=== PATIENT | male | born 1945 | race Caucasian/White ===

== ENCOUNTER 2020-10-06 18:29 | Observation (INO) ==
[2020-10-06] MEDS ORDERED: GLUCAGON 1 MG VIAL IM PRN (21:06)
[2020-10-06] MEDS ORDERED: ONDANSETRON 4 MG/2 ML VIAL IV PRN (21:06)
[2020-10-06] MEDS ORDERED: DEXTROSE 50% 25 GM/50 ML VIAL IV PRN (21:06)
[2020-10-06] MEDS ORDERED: POTASSIUM CHLORIDE 20 MEQ TABLET PO PRN (22:10)
[2020-10-06] MEDS ORDERED: POTASSIUM CHLORIDE 20 MEQ TABLET PO ONE (22:10)
[2020-10-06 22:11] LABS: Basophils % 0.2 % (0.0-0.8); Eosinophils % 0.1 % (0.00-10.9); Hematocrit 36.1 VOL% (42.0-52.0); Hemoglobin 12.2 GM/DL (14.0-18.0); Immature Granulocytes % 0.2 %; Immature Granulocytes Absolute 0.02 #; Lymphocytes # 1.2 10*3/uL (1.4-4.0); Lymphocytes % 13.7 % (21.2-54.2); Mean Corpuscular HGB Conc 33.8 GM/DL (32-36); Mean Corpuscular Volume 92.1 FL (87-102); Mean Platelet Volume 10.2 FL (9.6-12.0); Monocytes % 4.6 % (1.7-12.7); Neutrophils % 81.2 % (38.7-73.9); Platelet Count 177 T/CUMM (130-400); Red Blood Count 3.92 MC/CUMM (3.8-5.5); Red Cell Distribution Width 13.2 % (9.3-17.3); White Blood Count 8.5 T/CUMM (4-12)
[2020-10-07 05:08] LABS: Basophils % 0.6 % (0.0-0.8); Eosinophils % 0.6 % (0.00-10.9); Hematocrit 36.4 VOL% (42.0-52.0); Hemoglobin 11.9 GM/DL (14.0-18.0); Immature Granulocytes % 0.3 %; Immature Granulocytes Absolute 0.02 #; Lymphocytes # 2.3 10*3/uL (1.4-4.0); Lymphocytes % 31.5 % (21.2-54.2); Mean Corpuscular HGB Conc 32.7 GM/DL (32-36); Mean Corpuscular Volume 92.9 FL (87-102); Mean Platelet Volume 10.5 FL (9.6-12.0); Monocytes % 10.4 % (1.7-12.7); Neutrophils % 56.6 % (38.7-73.9); Platelet Count 167 T/CUMM (130-400); Red Blood Count 3.92 MC/CUMM (3.8-5.5); Red Cell Distribution Width 13.2 % (9.3-17.3); White Blood Count 7.2 T/CUMM (4-12)
[2020-10-07 05:52] LABS: Albumin 3.3 G/DL (3.4-5.0); Bilirubin,Total 0.7 MG/DL (0.2-1.0); Calcium 9.2 MG/DL (8.5-10.1); Osmolality,Calculated 283.7 MOS/KG (273-304); Potassium 4.1 MMOL/L (3.5-5.1); Total Protein 6.8 G/DL (6.4-8.2)
[2020-10-07] MEDS ORDERED: MAGNESIUM SULF RIDER 2 GM/50 ML PREMIX IV ONE (08:12)
[2020-10-07] MEDS: INSULIN REGULAR 100 UNIT/ML SUBCUT SCH ×4 (08:31→20:51)
[2020-10-07] MEDS: PANTOPRAZOLE 40 MG TABLET PO SCH (09:29)
[2020-10-07] MEDS: ENOXAPARIN 100 MG/ML SYRINGE SUBCUT SCH ×2 (09:29→20:51)
[2020-10-07] MEDS: lisinopriL 20 MG TABLET PO SCH ×2 (09:52→20:50)
[2020-10-07] MEDS: amLODIPine 10 MG TABLET PO SCH (09:52)
[2020-10-07] MEDS: ASPIRIN CHEW 81 MG TABLET PO SCH (09:52)
[2020-10-07] MEDS ORDERED: SODIUM CHLORIDE 0.9% 1,000 ML IV SCH (10:00)
[2020-10-07 10:22] LABS: Bilirubin,Urine Negative (Negative); Blood, Urine Negative (Negative); Glucose,Urine (UA) 50 mg/dL (Negative); Ketones,Urine 5 mg/dL (Negative); Nitrite,Urine Negative (Negative); Protein,Urine Negative; RBC,Urine 1 /HPF (0-4); Squamous Epithelial Cell,Urine Occasional /HPF (0-10); Urine Appearance CLEAR (Clear); Urine Color Yellow (Yellow); Urine Specific Gravity 1.017 (1.001-1.035); Urine Urobilinogen < 2.0 EU/DL (0.2-1.0)
[2020-10-07] MEDS: METOPROLOL TARTRATE 25 MG TABLET PO SCH ×2 (12:46→20:50)
[2020-10-07] MEDS ORDERED: LATANOPROST 0.005% OPH SOLN 2.5 ML BOTTLE BOTH EYES SCH (21:00)
[2020-10-07] MEDS ORDERED: ATORVASTATIN 20 MG TABLET PO SCH (21:00)
[2020-10-08 04:32] LABS: Basophils # 0.1 10*3/uL (0.0-0.2); Basophils % 0.9 % (0.0-0.8); Eosinophils # 0.1 10*3/uL (0.0-0.87); Eosinophils % 2.3 % (0.00-10.9); Hematocrit 34.4 VOL% (42.0-52.0); Hemoglobin 11.5 GM/DL (14.0-18.0); Immature Granulocytes % 0.2 %; Immature Granulocytes Absolute 0.01 #; Lymphocytes # 2.6 10*3/uL (1.4-4.0); Mean Corpuscular HGB Conc 33.4 GM/DL (32-36); Mean Platelet Volume 10.2 FL (9.6-12.0); Monocytes % 10.3 % (1.7-12.7); Neutrophils % 40.3 % (38.7-73.9); Platelet Count 156 T/CUMM (130-400); Red Cell Distribution Width 13.2 % (9.3-17.3); White Blood Count 5.6 T/CUMM (4-12)
[2020-10-08 05:00] LABS: Calcium 8.7 MG/DL (8.5-10.1); Osmolality,Calculated 280.4 MOS/KG (273-304); Potassium 3.7 MMOL/L (3.5-5.1)
[2020-10-08 05:31] LABS: Risk Ratio 3.64; VLDL CHOLESTEROL 18.2 MG/DL
[2020-10-08] MEDS: INSULIN REGULAR 100 UNIT/ML SUBCUT SCH (08:05)
[2020-10-08] MEDS ORDERED: ACETAMINOPHEN 325 MG TABLET PO PRN (08:15)
[2020-10-08] MEDS ORDERED: MULTIVITAMIN (CENTRUM) TABLET PO SCH (09:00)
[2020-10-08] MEDS ORDERED: CALCIUM (CARBONATE)/VITAMIN D 500 MG-200 UNIT TABLET PO SCH (09:00)
[2020-10-08] MEDS ORDERED: APIXABAN 5 MG TABLET PO SCH (09:00)
[2020-10-08] MEDS: METOPROLOL TARTRATE 25 MG TABLET PO SCH (09:13)
[2020-10-08] MEDS: ASPIRIN CHEW 81 MG TABLET PO SCH (09:13)
[2020-10-08] MEDS: PANTOPRAZOLE 40 MG TABLET PO SCH (09:14)
[2020-10-08] MEDS: amLODIPine 10 MG TABLET PO SCH (09:15)
[2020-10-08] MEDS: lisinopriL 20 MG TABLET PO SCH (09:15)
[2020-10-08 12:17] VITALS: BP 158/93
== END 2020-10-08 12:50 | disposition home or self-care (01) ==
LOC: N.TELEN
PROVIDERS: ADMIT Internal Medicine; ATTEND Internal Medicine

== ENCOUNTER 2020-10-17 01:03 | Inpatient (IN) ==
[2020-10-17] MEDS ORDERED: ONDANSETRON 4 MG/2 ML VIAL IV PRN (03:46)
[2020-10-17] MEDS ORDERED: GLUCAGON 1 MG VIAL IM PRN (03:46)
[2020-10-17] MEDS ORDERED: NICOTINE 21 MG/24 HR PATCH TRANSDERM PRN (03:46)
[2020-10-17] MEDS ORDERED: traZODone 50 MG TABLET PO PRN (03:46)
[2020-10-17] MEDS ORDERED: diphenhydrAMINE CAP 25 MG CAPSULE PO PRN (03:46)
[2020-10-17] MEDS ORDERED: DEXTROSE 50% 25 GM/50 ML VIAL IV PRN (03:46)
[2020-10-17] MEDS ORDERED: hydrALAZINE 20 MG/1 ML VIAL IV PRN (03:46)
[2020-10-17 05:01] LABS: ABG HCO3 26.2 MMOL/L (20-26); ABG Oxygen Saturation 96.2 % (95-100); ABG PCO2 44.4 MM HG (35-48); ABG PH 7.397 (7.35-7.45); ABG PO2 82.7 MM HG (80-95); ABG TCO2 24.2 MMOL/L (23-27)
[2020-10-17 06:02] LABS: Basophils % 0.4 % (0.0-0.8); Eosinophils % 0.2 % (0.00-10.9); Hematocrit 35.1 VOL% (42.0-52.0); Hemoglobin 11.9 GM/DL (14.0-18.0); Immature Granulocytes % 0.3 %; Immature Granulocytes Absolute 0.03 #; Lymphocytes # 1.8 10*3/uL (1.4-4.0); Lymphocytes % 19.3 % (21.2-54.2); Mean Corpuscular HGB Conc 33.9 GM/DL (32-36); Mean Corpuscular Volume 93.1 FL (87-102); Mean Platelet Volume 10.6 FL (9.6-12.0); Monocytes % 9.6 % (1.7-12.7); Neutrophils % 70.2 % (38.7-73.9); Platelet Count 167 T/CUMM (130-400); Red Blood Count 3.77 MC/CUMM (3.8-5.5); Red Cell Distribution Width 13.6 % (9.3-17.3); White Blood Count 9.5 T/CUMM (4-12)
[2020-10-17 06:19] LABS: Calcium 8.9 MG/DL (8.5-10.1); Osmolality,Calculated 286.4 MOS/KG (273-304); Potassium 4.7 MMOL/L (3.5-5.1)
[2020-10-17] MEDS ORDERED: LEVOFLOXACIN INJ 750 MG/150 ML PREMIX IV SCH (07:00)
[2020-10-17] MEDS: ALBUTEROL/IPRATROPIUM 3 ML NEB RESP TX SCH ×4 (08:06→20:40)
[2020-10-17] MEDS: amLODIPine 10 MG TABLET PO SCH (09:03)
[2020-10-17] MEDS: METOPROLOL TARTRATE 25 MG TABLET PO SCH ×2 (09:03→20:54)
[2020-10-17] MEDS: lisinopriL 20 MG TABLET PO SCH ×2 (09:03→20:54)
[2020-10-17] MEDS: APIXABAN 5 MG TABLET PO SCH ×2 (09:03→20:54)
[2020-10-17] MEDS: INSULIN REGULAR 100 UNIT/ML SUBCUT SCH ×4 (09:04→20:55)
[2020-10-17] MEDS ORDERED: ASPIRIN 325 MG TABLET PO ONE (11:21)
[2020-10-17] MEDS ORDERED: MAGNESIUM SULF RIDER 2 GM/50 ML PREMIX IV PRN (11:21)
[2020-10-17] MEDS ORDERED: POTASSIUM CHLORIDE RIDER 10 MEQ/100 ML PREMIX IV PRN (11:21)
[2020-10-17] MEDS ORDERED: SODIUM CHLORIDE 0.9% 1,000 ML IV SCH (11:30)
[2020-10-17] MEDS: AMIODARONE 200 MG TABLET PO SCH ×2 (13:48→20:53)
[2020-10-17] MEDS: ATORVASTATIN 20 MG TABLET PO SCH (20:54)
[2020-10-18] MEDS: ALBUTEROL/IPRATROPIUM 3 ML NEB RESP TX SCH ×4 (00:44→19:55)
[2020-10-18 06:23] LABS: Basophils % 0.5 % (0.0-0.8); Eosinophils % 0.1 % (0.00-10.9); Hematocrit 34.5 VOL% (42.0-52.0); Hemoglobin 11.5 GM/DL (14.0-18.0); Immature Granulocytes % 0.2 %; Immature Granulocytes Absolute 0.02 #; Lymphocytes # 1.3 10*3/uL (1.4-4.0); Lymphocytes % 14.9 % (21.2-54.2); Mean Corpuscular HGB Conc 33.3 GM/DL (32-36); Mean Corpuscular Volume 92.5 FL (87-102); Mean Platelet Volume 10.7 FL (9.6-12.0); Monocytes % 10.2 % (1.7-12.7); Neutrophils % 74.1 % (38.7-73.9); Platelet Count 162 T/CUMM (130-400); Red Blood Count 3.73 MC/CUMM (3.8-5.5); Red Cell Distribution Width 13.6 % (9.3-17.3); White Blood Count 8.8 T/CUMM (4-12)
[2020-10-18 06:51] LABS: Calcium 8.7 MG/DL (8.5-10.1); Osmolality,Calculated 284.5 MOS/KG (273-304); Potassium 4.2 MMOL/L (3.5-5.1)
[2020-10-18] MEDS ORDERED: diphenhydrAMINE CAP 25 MG CAPSULE PO ONE (07:00)
[2020-10-18] MEDS ORDERED: DIAZEPAM 5 MG TABLET PO ONE (07:00)
[2020-10-18] MEDS: lisinopriL 20 MG TABLET PO SCH ×2 (08:53→20:08)
[2020-10-18] MEDS: APIXABAN 5 MG TABLET PO SCH (08:53)
[2020-10-18] MEDS: METOPROLOL TARTRATE 25 MG TABLET PO SCH ×2 (08:54→20:08)
[2020-10-18] MEDS: AMIODARONE 200 MG TABLET PO SCH ×2 (08:54→20:08)
[2020-10-18] MEDS: amLODIPine 10 MG TABLET PO SCH (08:54)
[2020-10-18] MEDS: INSULIN REGULAR 100 UNIT/ML SUBCUT SCH ×4 (08:59→20:07)
[2020-10-18] MEDS ORDERED: LIDOCAINE 1% 20 ML VIAL ONE (09:01)
[2020-10-18] MEDS ORDERED: fentaNYL 100 MCG/2 ML VIAL ONE (09:02)
[2020-10-18] MEDS ORDERED: MIDAZOLAM 2 MG/2 ML VIAL ONE (09:02)
[2020-10-18] MEDS ORDERED: FUROSEMIDE 40 MG/4 ML VIAL ONE (09:21)
[2020-10-18] MEDS ORDERED: hydrALAZINE 20 MG/1 ML VIAL ONE (09:24)
[2020-10-18] MEDS ORDERED: NITROGLYCERIN DRIP 50 MG/250 ML BOTTLE IV ONE (09:25)
[2020-10-18] MEDS: NITROGLYCERIN DRIP 50 MG/250 ML BOTTLE IV SCH (09:30)
[2020-10-18] MEDS ORDERED: SUCCINYLCHOLINE 200 MG/10 ML VIAL ONE (09:36)
[2020-10-18] MEDS ORDERED: ETOMIDATE 20 MG/10 ML VIAL IV ONE (09:36)
[2020-10-18] MEDS: SPIRONOLACTONE 25 MG TABLET PO SCH (11:47)
[2020-10-18] MEDS ORDERED: MAGNESIUM SULF RIDER 2 GM/50 ML PREMIX IV ONE (12:29)
[2020-10-18] MEDS ORDERED: FUROSEMIDE 40 MG/4 ML VIAL IV ONE (15:00)
[2020-10-18] MEDS: INSULIN GLARGINE 100 UNIT/ML SUBCUT SCH (20:07)
[2020-10-18] MEDS: ATORVASTATIN 20 MG TABLET PO SCH (20:08)
[2020-10-18] MEDS: LATANOPROST 0.005% OPH SOLN 2.5 ML BOTTLE BOTH EYES SCH (20:13)
[2020-10-19] MEDS: ALBUTEROL/IPRATROPIUM 3 ML NEB RESP TX SCH ×4 (01:45→19:20)
[2020-10-19 04:43] LABS: Basophils % 0.4 % (0.0-0.8); Eosinophils # 0.1 10*3/uL (0.0-0.87); Eosinophils % 1.5 % (0.00-10.9); Hemoglobin 12.2 GM/DL (14.0-18.0); Immature Granulocytes % 0.4 %; Immature Granulocytes Absolute 0.03 #; Lymphocytes # 1.7 10*3/uL (1.4-4.0); Lymphocytes % 19.7 % (21.2-54.2); Mean Corpuscular Volume 93.4 FL (87-102); Monocytes % 8.1 % (1.7-12.7); Neutrophils % 69.9 % (38.7-73.9); Platelet Count 165 T/CUMM (130-400); Red Blood Count 3.96 MC/CUMM (3.8-5.5); Red Cell Distribution Width 13.3 % (9.3-17.3); White Blood Count 8.4 T/CUMM (4-12)
[2020-10-19 05:06] LABS: Calcium 8.9 MG/DL (8.5-10.1); Osmolality,Calculated 278.7 MOS/KG (273-304); Potassium 3.6 MMOL/L (3.5-5.1)
[2020-10-19] MEDS: ACETAMINOPHEN 325 MG TABLET PO PRN (05:34)
[2020-10-19] MEDS: MORPHINE 4 MG/1 ML VIAL IV PRN ×3 (06:07→18:24)
[2020-10-19] MEDS ORDERED: AMIODARONE INJ 150 MG in DEXTROSE 5% 100 ML IV ONE (07:26)
[2020-10-19] MEDS ORDERED: DEXTROSE 50% 25 GM/50 ML VIAL IV PRN (07:29)
[2020-10-19] MEDS ORDERED: GLUCAGON 1 MG VIAL IM PRN (07:29)
[2020-10-19] MEDS ORDERED: AMIODARONE INJ 450 MG in DEXTROSE 5% 241 ML IV SCH (07:30)
[2020-10-19] MEDS: FUROSEMIDE 40 MG/4 ML VIAL IV SCH ×2 (07:46→16:27)
[2020-10-19] MEDS: INSULIN REGULAR 100 UNIT/ML SUBCUT SCH ×4 (07:46→21:45)
[2020-10-19] MEDS: ASPIRIN CHEW 81 MG TABLET PO SCH (08:01)
[2020-10-19] MEDS: SPIRONOLACTONE 25 MG TABLET PO SCH (08:01)
[2020-10-19] MEDS: OMEGA 3 ACID ETHYL ESTERS 1 GM CAPSULE PO SCH (08:01)
[2020-10-19] MEDS: glyBURIDE 5 MG TABLET PO SCH (08:01)
[2020-10-19] MEDS: METOPROLOL TARTRATE 25 MG TABLET PO SCH ×2 (08:01→21:46)
[2020-10-19] MEDS: lisinopriL 20 MG TABLET PO SCH ×2 (08:02→21:46)
[2020-10-19] MEDS: amLODIPine 10 MG TABLET PO SCH (08:02)
[2020-10-19] MEDS ORDERED: AMIODARONE 150 MG/3 ML VIAL ONE (08:19)
[2020-10-19] MEDS ORDERED: FUROSEMIDE 40 MG/4 ML VIAL IV SCH (09:00)
[2020-10-19] MEDS: NITROGLYCERIN DRIP 50 MG/250 ML BOTTLE IV SCH (09:48)
[2020-10-19] MEDS ORDERED: diphenhydrAMINE CAP 25 MG CAPSULE PO ONE (10:30)
[2020-10-19] MEDS ORDERED: DIAZEPAM 5 MG TABLET PO ONE (10:30)
[2020-10-19] MEDS: APIXABAN 5 MG TABLET PO SCH ×2 (11:31→21:45)
[2020-10-19 13:19] LABS: Bilirubin,Urine Negative (Negative); Blood, Urine Large mg/dL (Negative); Glucose,Urine (UA) 50 mg/dL (Negative); Hyaline Casts,Urine 41 /LPF (0-3); Ketones,Urine Negative (Negative); Mucus,Urine Few /LPF (Occasional); Nitrite,Urine Negative (Negative); Protein,Urine 30 MG/DL; RBC,Urine 1921 /HPF (0-4); Urine Appearance CLOUDY (Clear); Urine Color Red (Yellow); Urine Specific Gravity 1.015 (1.001-1.035); Urine Urobilinogen < 2.0 EU/DL (0.2-1.0)
[2020-10-19] MEDS: AMIODARONE INJ 450 MG in DEXTROSE 5% 241 ML IV SCH (16:00)
[2020-10-19] MEDS ORDERED: diphenhydrAMINE CAP 50 MG CAPSULE PO PRN (18:21)
[2020-10-19] MEDS: INSULIN GLARGINE 100 UNIT/ML SUBCUT SCH (21:45)
[2020-10-19] MEDS: LATANOPROST 0.005% OPH SOLN 2.5 ML BOTTLE BOTH EYES SCH (21:46)
[2020-10-19] MEDS: ATORVASTATIN 20 MG TABLET PO SCH (21:46)
[2020-10-20] MEDS: ALBUTEROL/IPRATROPIUM 3 ML NEB RESP TX SCH ×4 (01:34→18:45)
[2020-10-20 04:10] LABS: Basophils % 0.5 % (0.0-0.8); Eosinophils # 0.2 10*3/uL (0.0-0.87); Eosinophils % 2.7 % (0.00-10.9); Hemoglobin 11.7 GM/DL (14.0-18.0); Immature Granulocytes % 0.5 %; Immature Granulocytes Absolute 0.04 #; Lymphocytes # 1.6 10*3/uL (1.4-4.0); Lymphocytes % 19.2 % (21.2-54.2); Mean Corpuscular HGB Conc 32.5 GM/DL (32-36); Mean Corpuscular Volume 94.5 FL (87-102); Mean Platelet Volume 10.7 FL (9.6-12.0); Monocytes % 10.8 % (1.7-12.7); Neutrophils % 66.3 % (38.7-73.9); Platelet Count 158 T/CUMM (130-400); Red Blood Count 3.81 MC/CUMM (3.8-5.5); Red Cell Distribution Width 13.4 % (9.3-17.3); White Blood Count 8.5 T/CUMM (4-12)
[2020-10-20 04:38] LABS: Calcium 8.7 MG/DL (8.5-10.1); Osmolality,Calculated 280.8 MOS/KG (273-304); Potassium 3.9 MMOL/L (3.5-5.1)
[2020-10-20] MEDS: MORPHINE 4 MG/1 ML VIAL IV PRN (05:01)
[2020-10-20] MEDS: INSULIN REGULAR 100 UNIT/ML SUBCUT SCH ×5 (08:41→20:37)
[2020-10-20] MEDS ORDERED: AMIODARONE 200 MG TABLET PO SCH (09:30)
[2020-10-20] MEDS: glyBURIDE 5 MG TABLET PO SCH (09:31)
[2020-10-20] MEDS: AMIODARONE INJ 450 MG in DEXTROSE 5% 241 ML IV SCH (09:31)
[2020-10-20] MEDS: ASPIRIN CHEW 81 MG TABLET PO SCH (09:31)
[2020-10-20] MEDS: OMEGA 3 ACID ETHYL ESTERS 1 GM CAPSULE PO SCH (09:33)
[2020-10-20] MEDS: amLODIPine 10 MG TABLET PO SCH (09:33)
[2020-10-20] MEDS: SPIRONOLACTONE 25 MG TABLET PO SCH (09:33)
[2020-10-20] MEDS: AMIODARONE 200 MG TABLET PO SCH ×2 (09:33→20:36)
[2020-10-20] MEDS: METOPROLOL TARTRATE 25 MG TABLET PO SCH ×2 (09:34→20:36)
[2020-10-20] MEDS: APIXABAN 5 MG TABLET PO SCH (09:34)
[2020-10-20] MEDS ORDERED: lisinopriL 20 MG TABLET ONE (09:36)
[2020-10-20] MEDS: FUROSEMIDE 20 MG TABLET PO SCH (09:37)
[2020-10-20] MEDS: lisinopriL 20 MG TABLET PO SCH (09:38)
[2020-10-20] MEDS: NITROGLYCERIN DRIP 50 MG/250 ML BOTTLE IV SCH (11:45)
[2020-10-20] MEDS: CYCLOBENZAPRINE 10 MG TABLET PO PRN ×2 (12:28→18:33)
[2020-10-20] MEDS: ATORVASTATIN 20 MG TABLET PO SCH (20:35)
[2020-10-20] MEDS: INSULIN GLARGINE 100 UNIT/ML SUBCUT SCH (20:36)
[2020-10-20] MEDS: LATANOPROST 0.005% OPH SOLN 2.5 ML BOTTLE BOTH EYES SCH (20:37)
[2020-10-21] MEDS: ALBUTEROL/IPRATROPIUM 3 ML NEB RESP TX SCH ×5 (00:46→23:20)
[2020-10-21] MEDS: CYCLOBENZAPRINE 10 MG TABLET PO PRN ×2 (01:11→18:05)
[2020-10-21 06:12] LABS: Basophils % 0.5 % (0.0-0.8); Eosinophils # 0.2 10*3/uL (0.0-0.87); Eosinophils % 2.5 % (0.00-10.9); Hematocrit 33.4 VOL% (42.0-52.0); Hemoglobin 10.9 GM/DL (14.0-18.0); Immature Granulocytes % 0.4 %; Immature Granulocytes Absolute 0.03 #; Lymphocytes # 1.8 10*3/uL (1.4-4.0); Mean Corpuscular HGB Conc 32.6 GM/DL (32-36); Mean Platelet Volume 10.3 FL (9.6-12.0); Monocytes % 10.5 % (1.7-12.7); Neutrophils % 64.1 % (38.7-73.9); Platelet Count 191 T/CUMM (130-400); Red Blood Count 3.59 MC/CUMM (3.8-5.5); Red Cell Distribution Width 12.9 % (9.3-17.3); White Blood Count 8.1 T/CUMM (4-12)
[2020-10-21 06:27] LABS: Calcium 8.6 MG/DL (8.5-10.1); Osmolality,Calculated 278.7 MOS/KG (273-304); Potassium 3.9 MMOL/L (3.5-5.1)
[2020-10-21] MEDS ORDERED: DIAZEPAM 5 MG TABLET PO ONE (07:00)
[2020-10-21] MEDS ORDERED: diphenhydrAMINE CAP 25 MG CAPSULE PO ONE (07:00)
[2020-10-21] MEDS: INSULIN REGULAR 100 UNIT/ML SUBCUT SCH ×4 (08:21→20:36)
[2020-10-21] MEDS: SPIRONOLACTONE 25 MG TABLET PO SCH (08:21)
[2020-10-21] MEDS: glyBURIDE 5 MG TABLET PO SCH (08:22)
[2020-10-21] MEDS: FUROSEMIDE 20 MG TABLET PO SCH (08:22)
[2020-10-21] MEDS: OMEGA 3 ACID ETHYL ESTERS 1 GM CAPSULE PO SCH (08:22)
[2020-10-21] MEDS: METOPROLOL TARTRATE 25 MG TABLET PO SCH ×2 (09:54→20:35)
[2020-10-21] MEDS: amLODIPine 10 MG TABLET PO SCH (09:54)
[2020-10-21] MEDS: ASPIRIN CHEW 81 MG TABLET PO SCH (09:54)
[2020-10-21] MEDS: AMIODARONE 200 MG TABLET PO SCH ×2 (09:55→20:35)
[2020-10-21] MEDS ORDERED: MIDAZOLAM 2 MG/2 ML VIAL ONE (11:21)
[2020-10-21] MEDS ORDERED: fentaNYL 100 MCG/2 ML VIAL ONE (11:21)
[2020-10-21] MEDS ORDERED: LIDOCAINE 1% 20 ML VIAL ONE (11:21)
[2020-10-21] MEDS ORDERED: GLUCAGON 1 MG VIAL IM PRN (13:01)
[2020-10-21] MEDS ORDERED: DEXTROSE 50% 25 GM/50 ML VIAL IV PRN (13:01)
[2020-10-21] MEDS ORDERED: SODIUM CHLORIDE 0.9% 1,000 ML IV SCH (13:30)
[2020-10-21] MEDS: ATORVASTATIN 20 MG TABLET PO SCH (20:35)
[2020-10-21] MEDS: INSULIN GLARGINE 100 UNIT/ML SUBCUT SCH (20:35)
[2020-10-21] MEDS: LATANOPROST 0.005% OPH SOLN 2.5 ML BOTTLE BOTH EYES SCH (20:43)
[2020-10-21] MEDS: MORPHINE 4 MG/1 ML VIAL IV PRN (22:19)
[2020-10-21] MEDS ORDERED: MORPHINE 4 MG/1 ML VIAL IV ONE (23:34)
[2020-10-22 04:56] LABS: Basophils % 0.5 % (0.0-0.8); Eosinophils # 0.1 10*3/uL (0.0-0.87); Eosinophils % 0.9 % (0.00-10.9); Hematocrit 34.9 VOL% (42.0-52.0); Hemoglobin 11.8 GM/DL (14.0-18.0); Immature Granulocytes % 0.3 %; Immature Granulocytes Absolute 0.02 #; Lymphocytes # 1.3 10*3/uL (1.4-4.0); Lymphocytes % 17.1 % (21.2-54.2); Mean Corpuscular HGB Conc 33.8 GM/DL (32-36); Mean Corpuscular Volume 92.3 FL (87-102); Mean Platelet Volume 11.6 FL (9.6-12.0); Monocytes % 11.8 % (1.7-12.7); Neutrophils % 69.4 % (38.7-73.9); Platelet Count 156 T/CUMM (130-400); Red Blood Count 3.78 MC/CUMM (3.8-5.5); Red Cell Distribution Width 12.9 % (9.3-17.3); White Blood Count 7.7 T/CUMM (4-12)
[2020-10-22 05:31] LABS: Calcium 8.7 MG/DL (8.5-10.1); Osmolality,Calculated 278.4 MOS/KG (273-304); Potassium 4.8 MMOL/L (3.5-5.1)
[2020-10-22] MEDS ORDERED: ALBUTEROL/IPRATROPIUM 3 ML NEB RESP TX PRN (05:53)
[2020-10-22] MEDS ORDERED: FUROSEMIDE 40 MG/4 ML VIAL IV ONE ×2 (06:16→12:00)
[2020-10-22] MEDS: ALBUTEROL/IPRATROPIUM 3 ML NEB RESP TX SCH ×3 (07:20→19:26)
[2020-10-22] MEDS ORDERED: metOLazone 5 MG TABLET PO SCH (09:00)
[2020-10-22] MEDS: ACETAMINOPHEN 325 MG TABLET PO PRN (09:24)
[2020-10-22] MEDS: ASPIRIN CHEW 81 MG TABLET PO SCH (10:27)
[2020-10-22] MEDS: amLODIPine 10 MG TABLET PO SCH (10:27)
[2020-10-22] MEDS: glyBURIDE 5 MG TABLET PO SCH (10:27)
[2020-10-22] MEDS: AMIODARONE 200 MG TABLET PO SCH ×2 (10:28→21:52)
[2020-10-22] MEDS: OMEGA 3 ACID ETHYL ESTERS 1 GM CAPSULE PO SCH (10:28)
[2020-10-22] MEDS: SPIRONOLACTONE 25 MG TABLET PO SCH (10:29)
[2020-10-22] MEDS: METOPROLOL TARTRATE 50 MG TABLET PO SCH ×2 (10:29→21:52)
[2020-10-22] MEDS: INSULIN REGULAR 100 UNIT/ML SUBCUT SCH ×4 (10:30→21:56)
[2020-10-22] MEDS: ATORVASTATIN 20 MG TABLET PO SCH (21:52)
[2020-10-22] MEDS: APIXABAN 5 MG TABLET PO SCH (21:52)
[2020-10-22] MEDS: INSULIN GLARGINE 100 UNIT/ML SUBCUT SCH (21:57)
[2020-10-22] MEDS: LATANOPROST 0.005% OPH SOLN 2.5 ML BOTTLE BOTH EYES SCH (21:58)
[2020-10-23] MEDS: ALBUTEROL/IPRATROPIUM 3 ML NEB RESP TX SCH ×4 (01:03→19:49)
[2020-10-23 04:56] LABS: Basophils # 0.1 10*3/uL (0.0-0.2); Basophils % 0.6 % (0.0-0.8); Eosinophils # 0.2 10*3/uL (0.0-0.87); Eosinophils % 2.4 % (0.00-10.9); Hematocrit 36.4 VOL% (42.0-52.0); Hemoglobin 12.1 GM/DL (14.0-18.0); Immature Granulocytes % 0.4 %; Immature Granulocytes Absolute 0.03 #; Lymphocytes # 1.8 10*3/uL (1.4-4.0); Mean Corpuscular HGB Conc 33.2 GM/DL (32-36); Mean Corpuscular Volume 91.5 FL (87-102); Mean Platelet Volume 10.1 FL (9.6-12.0); Monocytes % 12.6 % (1.7-12.7); Platelet Count 234 T/CUMM (130-400); Red Blood Count 3.98 MC/CUMM (3.8-5.5); Red Cell Distribution Width 12.7 % (9.3-17.3); White Blood Count 7.9 T/CUMM (4-12)
[2020-10-23 05:37] LABS: Calcium 9.5 MG/DL (8.5-10.1); Osmolality,Calculated 272.4 MOS/KG (273-304); Potassium 3.7 MMOL/L (3.5-5.1)
[2020-10-23] MEDS ORDERED: FUROSEMIDE 40 MG TABLET PO SCH (09:00)
[2020-10-23] MEDS: POLYETHYLENE GLYCOL POWDER 17 GM PACK PO SCH (09:31)
[2020-10-23] MEDS: glyBURIDE 5 MG TABLET PO SCH (09:32)
[2020-10-23] MEDS: APIXABAN 5 MG TABLET PO SCH ×2 (09:33→21:30)
[2020-10-23] MEDS: SPIRONOLACTONE 25 MG TABLET PO SCH (09:33)
[2020-10-23] MEDS: AMIODARONE 200 MG TABLET PO SCH ×2 (09:33→21:30)
[2020-10-23] MEDS: METOPROLOL TARTRATE 50 MG TABLET PO SCH ×2 (09:33→21:30)
[2020-10-23] MEDS: FUROSEMIDE 40 MG/4 ML VIAL IV SCH (09:34)
[2020-10-23] MEDS: amLODIPine 10 MG TABLET PO SCH (09:34)
[2020-10-23] MEDS: OMEGA 3 ACID ETHYL ESTERS 1 GM CAPSULE PO SCH (09:34)
[2020-10-23] MEDS: ASPIRIN CHEW 81 MG TABLET PO SCH (09:34)
[2020-10-23] MEDS ORDERED: MAGNESIUM HYDROXIDE SUSP 30 ML UDCUP PO PRN (12:01)
[2020-10-23] MEDS: INSULIN REGULAR 100 UNIT/ML SUBCUT SCH ×5 (13:27→21:31)
[2020-10-23] MEDS: ATORVASTATIN 20 MG TABLET PO SCH (21:30)
[2020-10-23] MEDS: DOCUSATE SODIUM 100 MG CAPSULE PO SCH (21:30)
[2020-10-23] MEDS: INSULIN GLARGINE 100 UNIT/ML SUBCUT SCH (21:31)
[2020-10-23] MEDS: LATANOPROST 0.005% OPH SOLN 2.5 ML BOTTLE BOTH EYES SCH (21:31)
[2020-10-24] MEDS: ALBUTEROL/IPRATROPIUM 3 ML NEB RESP TX SCH ×4 (00:15→19:33)
[2020-10-24 05:44] LABS: Basophils % 0.5 % (0.0-0.8); Eosinophils # 0.2 10*3/uL (0.0-0.87); Hematocrit 33.7 VOL% (42.0-52.0); Hemoglobin 11.4 GM/DL (14.0-18.0); Immature Granulocytes % 0.4 %; Immature Granulocytes Absolute 0.03 #; Lymphocytes # 1.8 10*3/uL (1.4-4.0); Lymphocytes % 24.5 % (21.2-54.2); Mean Corpuscular HGB Conc 33.8 GM/DL (32-36); Mean Corpuscular Volume 89.9 FL (87-102); Mean Platelet Volume 9.9 FL (9.6-12.0); Monocytes % 12.2 % (1.7-12.7); Neutrophils % 59.4 % (38.7-73.9); Platelet Count 271 T/CUMM (130-400); Red Blood Count 3.75 MC/CUMM (3.8-5.5); Red Cell Distribution Width 12.5 % (9.3-17.3); White Blood Count 7.4 T/CUMM (4-12)
[2020-10-24] MEDS: INSULIN REGULAR 100 UNIT/ML SUBCUT SCH ×4 (09:00→21:03)
[2020-10-24] MEDS: ASPIRIN CHEW 81 MG TABLET PO SCH (09:02)
[2020-10-24] MEDS: POLYETHYLENE GLYCOL POWDER 17 GM PACK PO SCH (09:03)
[2020-10-24] MEDS: DOCUSATE SODIUM 100 MG CAPSULE PO SCH ×2 (09:03→20:18)
[2020-10-24] MEDS: glyBURIDE 5 MG TABLET PO SCH (09:03)
[2020-10-24] MEDS: AMIODARONE 200 MG TABLET PO SCH ×2 (09:03→20:18)
[2020-10-24] MEDS: METOPROLOL TARTRATE 50 MG TABLET PO SCH (09:03)
[2020-10-24] MEDS: SPIRONOLACTONE 25 MG TABLET PO SCH (09:04)
[2020-10-24] MEDS: OMEGA 3 ACID ETHYL ESTERS 1 GM CAPSULE PO SCH (09:04)
[2020-10-24] MEDS: amLODIPine 10 MG TABLET PO SCH (09:04)
[2020-10-24] MEDS: APIXABAN 5 MG TABLET PO SCH ×2 (09:04→20:18)
[2020-10-24] MEDS: FUROSEMIDE 40 MG/4 ML VIAL IV SCH (09:05)
[2020-10-24 09:35] LABS: Calcium 9.6 MG/DL (8.5-10.1); Osmolality,Calculated 273.4 MOS/KG (273-304); Potassium 3.6 MMOL/L (3.5-5.1)
[2020-10-24] MEDS: ATORVASTATIN 20 MG TABLET PO SCH (20:18)
[2020-10-24] MEDS: METOPROLOL TARTRATE 25 MG TABLET PO SCH (20:18)
[2020-10-24] MEDS: INSULIN GLARGINE 100 UNIT/ML SUBCUT SCH (21:03)
[2020-10-24] MEDS: LATANOPROST 0.005% OPH SOLN 2.5 ML BOTTLE BOTH EYES SCH (21:04)
[2020-10-25] MEDS: ALBUTEROL/IPRATROPIUM 3 ML NEB RESP TX SCH ×4 (01:24→20:00)
[2020-10-25 06:30] LABS: Basophils # 0.1 10*3/uL (0.0-0.2); Basophils % 0.9 % (0.0-0.8); Eosinophils # 0.2 10*3/uL (0.0-0.87); Eosinophils % 2.8 % (0.00-10.9); Hematocrit 34.9 VOL% (42.0-52.0); Hemoglobin 12.2 GM/DL (14.0-18.0); Immature Granulocytes % 0.4 %; Immature Granulocytes Absolute 0.03 #; Lymphocytes # 1.7 10*3/uL (1.4-4.0); Lymphocytes % 21.9 % (21.2-54.2); Mean Corpuscular Volume 88.6 FL (87-102); Mean Platelet Volume 9.6 FL (9.6-12.0); Monocytes % 11.5 % (1.7-12.7); Neutrophils % 62.5 % (38.7-73.9); Platelet Count 283 T/CUMM (130-400); Red Blood Count 3.94 MC/CUMM (3.8-5.5); Red Cell Distribution Width 12.3 % (9.3-17.3); White Blood Count 7.9 T/CUMM (4-12)
[2020-10-25 07:03] LABS: Calcium 9.9 MG/DL (8.5-10.1); Osmolality,Calculated 273.2 MOS/KG (273-304); Potassium 3.5 MMOL/L (3.5-5.1)
[2020-10-25] MEDS: INSULIN REGULAR 100 UNIT/ML SUBCUT SCH ×4 (08:32→20:41)
[2020-10-25] MEDS: POLYETHYLENE GLYCOL POWDER 17 GM PACK PO SCH (09:00)
[2020-10-25] MEDS: glyBURIDE 5 MG TABLET PO SCH (09:01)
[2020-10-25] MEDS: ASPIRIN CHEW 81 MG TABLET PO SCH (09:01)
[2020-10-25] MEDS: DOCUSATE SODIUM 100 MG CAPSULE PO SCH ×2 (09:01→20:41)
[2020-10-25] MEDS: FUROSEMIDE 40 MG/4 ML VIAL IV SCH (09:01)
[2020-10-25] MEDS: AMIODARONE 200 MG TABLET PO SCH ×2 (09:02→20:41)
[2020-10-25] MEDS: APIXABAN 5 MG TABLET PO SCH ×2 (09:02→20:41)
[2020-10-25] MEDS: amLODIPine 10 MG TABLET PO SCH (09:02)
[2020-10-25] MEDS: OMEGA 3 ACID ETHYL ESTERS 1 GM CAPSULE PO SCH (09:02)
[2020-10-25] MEDS: METOPROLOL TARTRATE 25 MG TABLET PO SCH ×2 (09:02→20:41)
[2020-10-25] MEDS: SPIRONOLACTONE 25 MG TABLET PO SCH (09:02)
[2020-10-25] MEDS: ATORVASTATIN 20 MG TABLET PO SCH (20:41)
[2020-10-25] MEDS: LATANOPROST 0.005% OPH SOLN 2.5 ML BOTTLE BOTH EYES SCH (20:42)
[2020-10-25] MEDS: INSULIN GLARGINE 100 UNIT/ML SUBCUT SCH (20:42)
[2020-10-26] MEDS: ALBUTEROL/IPRATROPIUM 3 ML NEB RESP TX SCH ×4 (01:00→22:00)
[2020-10-26 06:13] LABS: Basophils # 0.1 10*3/uL (0.0-0.2); Basophils % 0.8 % (0.0-0.8); Eosinophils # 0.3 10*3/uL (0.0-0.87); Eosinophils % 2.9 % (0.00-10.9); Hematocrit 36.9 VOL% (42.0-52.0); Hemoglobin 12.3 GM/DL (14.0-18.0); Immature Granulocytes % 0.5 %; Immature Granulocytes Absolute 0.04 #; Lymphocytes % 23.1 % (21.2-54.2); Mean Corpuscular HGB Conc 33.3 GM/DL (32-36); Mean Platelet Volume 9.8 FL (9.6-12.0); Neutrophils % 62.7 % (38.7-73.9); Platelet Count 326 T/CUMM (130-400); Red Cell Distribution Width 12.5 % (9.3-17.3); White Blood Count 8.6 T/CUMM (4-12)
[2020-10-26 06:36] LABS: Platelet Estimate Normal
[2020-10-26 06:37] LABS: Anisocytosis 1+
[2020-10-26 06:49] LABS: Osmolality,Calculated 273.5 MOS/KG (273-304); Potassium 4.2 MMOL/L (3.5-5.1)
[2020-10-26] MEDS: INSULIN REGULAR 100 UNIT/ML SUBCUT SCH ×4 (08:54→20:44)
[2020-10-26] MEDS: OMEGA 3 ACID ETHYL ESTERS 1 GM CAPSULE PO SCH (08:55)
[2020-10-26] MEDS: FUROSEMIDE 40 MG/4 ML VIAL IV SCH (08:55)
[2020-10-26] MEDS: DOCUSATE SODIUM 100 MG CAPSULE PO SCH ×2 (08:56→20:44)
[2020-10-26] MEDS: APIXABAN 5 MG TABLET PO SCH ×2 (08:56→20:44)
[2020-10-26] MEDS: AMIODARONE 200 MG TABLET PO SCH ×2 (08:56→20:45)
[2020-10-26] MEDS: ASPIRIN CHEW 81 MG TABLET PO SCH (08:56)
[2020-10-26] MEDS: glyBURIDE 5 MG TABLET PO SCH (08:56)
[2020-10-26] MEDS: SPIRONOLACTONE 25 MG TABLET PO SCH (08:56)
[2020-10-26] MEDS: amLODIPine 10 MG TABLET PO SCH (08:57)
[2020-10-26] MEDS: POLYETHYLENE GLYCOL POWDER 17 GM PACK PO SCH (10:31)
[2020-10-26] MEDS: METOPROLOL TARTRATE 25 MG TABLET PO SCH ×2 (10:32→20:45)
[2020-10-26] MEDS: MAGNESIUM CHLORIDE 64 MG TABLET PO SCH (11:20)
[2020-10-26] MEDS ORDERED: MORPHINE 2 MG/1 ML SYRINGE IV PRN (14:02)
[2020-10-26] MEDS: ACETAMINOPHEN 325 MG TABLET PO PRN (19:40)
[2020-10-26] MEDS: ASCORBIC ACID 500 MG TABLET PO SCH (20:44)
[2020-10-26] MEDS: ATORVASTATIN 20 MG TABLET PO SCH (20:44)
[2020-10-26] MEDS: INSULIN GLARGINE 100 UNIT/ML SUBCUT SCH (20:45)
[2020-10-26] MEDS: LATANOPROST 0.005% OPH SOLN 2.5 ML BOTTLE BOTH EYES SCH (20:45)
[2020-10-27] MEDS: ALBUTEROL/IPRATROPIUM 3 ML NEB RESP TX SCH ×3 (01:00→12:58)
[2020-10-27 05:50] LABS: Calcium 9.9 MG/DL (8.5-10.1); Osmolality,Calculated 270.7 MOS/KG (273-304); Potassium 3.8 MMOL/L (3.5-5.1)
[2020-10-27] MEDS ORDERED: MULTIVITAMIN (CENTRUM) TABLET PO SCH (09:00)
[2020-10-27] MEDS ORDERED: FUROSEMIDE 40 MG TABLET PO SCH (09:00)
[2020-10-27] MEDS: POLYETHYLENE GLYCOL POWDER 17 GM PACK PO SCH (09:19)
[2020-10-27] MEDS: MAGNESIUM CHLORIDE 64 MG TABLET PO SCH (09:20)
[2020-10-27] MEDS: OMEGA 3 ACID ETHYL ESTERS 1 GM CAPSULE PO SCH (09:20)
[2020-10-27] MEDS: ASCORBIC ACID 500 MG TABLET PO SCH (09:20)
[2020-10-27] MEDS: ASPIRIN CHEW 81 MG TABLET PO SCH (09:20)
[2020-10-27] MEDS: DOCUSATE SODIUM 100 MG CAPSULE PO SCH (09:20)
[2020-10-27] MEDS: glyBURIDE 5 MG TABLET PO SCH (09:20)
[2020-10-27] MEDS: APIXABAN 5 MG TABLET PO SCH (09:21)
[2020-10-27] MEDS: AMIODARONE 200 MG TABLET PO SCH (09:21)
[2020-10-27] MEDS: SPIRONOLACTONE 25 MG TABLET PO SCH (09:21)
[2020-10-27] MEDS: METOPROLOL TARTRATE 25 MG TABLET PO SCH (09:21)
[2020-10-27] MEDS: amLODIPine 10 MG TABLET PO SCH (09:21)
[2020-10-27] MEDS: INSULIN REGULAR 100 UNIT/ML SUBCUT SCH ×2 (09:22→12:58)
[2020-10-27 12:07] VITALS: BP 152/69
[2020-10-28] MEDS ORDERED: POTASSIUM CHLORIDE 20 MEQ TABLET PO SCH (09:00)
== END 2020-10-27 14:31 | disposition hospice, home (50) | DRG 286 ==
LOC: INTOOBSV 02:42 → SUATTDRO 02:42 → N.TELES 02:42 → SUATTDRO 06:31 → N.CC 10-18 09:40 → N.TELES 10-20 18:38
PROVIDERS: ADMIT Internal Medicine; ATTEND Internal Medicine